=== PATIENT | male | born 1955 | race Caucasian/White ===

== ENCOUNTER 2017-01-24 16:04 | Emergency (ER) | payer MEDICARE, OTHER ==
[2017-01-24 16:39] LABS: MEAN CORPUSCULAR HEMOGLOBIN 30.8 pg (28.0-34.0)
[2017-01-24 16:48] LABS: eGFR (African) > 60; eGFR (Non-African) > 60
[2017-01-24] MEDS ORDERED: ACETAMINOPHEN 650 MG SUPP.RECT RC ONE (17:11)
[2017-01-24] MEDS: ACETAMINOPHEN 650 MG SUPP.RECT RC PRN (17:26)
--- NOTE | 2017-01-24 17:29 | ED Physician Documentation ---
Fall - HISTORIAN Historian: other ([facility] staff) - HPI Chief Complaint: Fall Onset: today, yesterday Where: other ([place]) Context: lost balance Associated Symptoms:: no loss of consciousness (per staff) Injury to Right Extremity: none Injury to Left Extremity: none Further Comments: yes (61 year old male patient with altered mental status after a fall this morning and last night. Staff reported no LOC. Temp on arrival 102.9. Patient unable to contribute to ROS due to dementia.) - ROS CONST: denies: no problems NEURO: other (increased confusion). denies: dizziness MS/SKIN/LYMPH: ankle swelling (feet) EYES/ENT: none CVS/RESP: none GI/: nausea. denies: vomiting - PAST HX Past History: other (dementia, HLD, Parkinson's, COPD) Allergies/Adverse Reactions: Allergies Allergy/AdvReac Type Severity Reaction Status Date / Time No Known Allergies Allergy Verified 01/24/17 17:30 Home Medications: Ambulatory Orders Medication Instructions Recorded Albuterol Sulfate [Albuterol 01/24/17 Sulfate] Aspirin EC [Ecotrin] 01/24/17 Atorvastatin Calcium [Atorvastatin 01/24/17 Calcium] Citalopram Hydrobromide [Celexa] 01/24/17 Divalproex Sodium [Depakote 8HS 01/24/17 Sprinkle] Trazodone HCl [Trazodone HCl] HS 01/24/17 - SOCIAL HX Smoking History: non-smoker Alcohol Use: none - FAMILY HX Family History: denies: none - VITAL SIGNS Vital Signs: Vital Signs Temp Pulse Resp BP Pulse Ox 84 95 01/24/17 16:45 01/24/17 16:45 - REVIEWED ASSESSMENTS Nursing Assessment Reviewed: Yes Vitals Reviewed: Yes Progress - Progress Progress: Unable to pass coude for I/O cath, scant bleeding from penis 1540 Patient attempting to get up multiple times, will not follow nursing redirection and commands. Ativan 1 mg IV given Neut count 91%, no manual diff available at this time, bands unknown. [address] Galeana - likely LLQ pneumonia on xray, will start antibiotic and discharge back to [place]. 1800 Patient extremely agitated, haldol 5mg given 1900 Patient sleeping, antibiotic and NS running. Will discharge back to [place] per Dr Galeana. ED Results Lab/Radiology - Lab Results Lab Results: Lab Results 01/24/17 01/24/17 01/24/17 16:15 16:15 16:15 WBC 7.20 K/ul K/ul (4.00-12.00) RBC 3.82 M/ul L M/ul (3.90-5.20) Hgb 11.7 g/dL L g/dL (12.0-18.0) Hct 34.3 % L % (37.0-53.0) MCV 90.0 fl fl (80.0-100.0) MCH 30.8 pg pg (28.0-34.0) MCHC 34.2 g/dL g/dL (30.0-36.0) RDW 15.3 % H % (11.3-14.3) Plt Count 195 K/mm3 K/mm3 (130-400) Sodium 137 mmol/L mmol/L (136-145) Potassium 4.1 mmol/L mmol/L (3.5-5.0) Chloride 104 mmol/L mmol/L (98-110) Carbon Dioxide 29 mmol/L mmol/L (20-32) BUN 15 mg/dL mg/dL (10-26) Creatinine 0.8 mg/dL mg/dL (0.4-1.5) Est GFR ( Amer) > 60 (60 - ) Est GFR (Non-Af Amer) > 60 (60 - ) Glucose 154 mg/dL H mg/dL (70-99) Calcium 9.1 mg/dL mg/dL (8.5-10.5) Total Bilirubin 1.0 mg/dL mg/dL (0.2-1.2) AST 25 U/L U/L (0-41) ALT 23 U/L U/L (0-45) Alkaline Phosphatase 101 U/L U/L (46-116) Creatine Kinase 162 U/L U/L (0-225) CK-MB (CK-2) Pending Troponin I < 0.03 ng/mL L ng/mL (0.03-0.06) Total Protein 7.0 g/dL g/dL (6.0-8.5) Albumin 4.4 g/dL g/dL (3.0-5.5) - Radiology Radiology Impressions: Examination: Portable chest History: Chest discomfort Findings: Single view of the chest demonstrates a normal cardiac and mediastinal silhouette. Mild linear atelectasis left midlung. No effusion. Osseous structures are appropriate for age. Impression: Mild left lung atelectasis. No effusion Electronically signed on Jan 24, 2017 5:45:07 PM CDT by: Alonso Weiner - Orders Orders: ED Orders Category Date Time Status Continuous EKG monitoring Q30M Care 01/24/17 16:15 Active Continuous Pulse Oximetry Q30M Care 01/24/17 16:[address] IV Lock 1T Care 01/24/17 16:15 Active CHEST 1 VIEW [RAD] Stat Exams 01/24/17 17:21 Ordered BLOOD CULTURE Stat Lab 01/24/17 Ordered CBC/PLATELET/DIFF Stat Lab 01/24/17 16:15 Completed CKMB Stat Lab 01/24/17 16:15 Results CMP Stat Lab 01/24/17 16:15 Completed CREATINE KINASE Stat Lab 01/24/17 16:15 Completed TROPONIN I (cTnI) Stat Lab 01/24/17 16:15 Results UA W/MICRO IF INDICATED Stat Lab 01/24/17 16:15 Ordered 0.9 % Sodium Chloride [Normal Saline] 1,000 ml Med 01/24/17 17:21 Discontinued IV NOW Acetaminophen [Tylenol] Med 01/24/17 17:11 Ordered 650 mg RC NOW PRN EKG WITH COMPARISON Stat Ther 01/24/17 16:15 Ordered Fall Physical Exam - Physical Exam General Appearance: moderate distress (does not communicate verbally) Head: no swelling Neck: non-tender, painless ROM Resp/CVS: chest non-tender, no ecchymosis, breath sounds nml, no resp. distress , heart sounds nml Abdomen: soft, no organomegaly, normal bowel sounds, no abdominal bruit, no distension Neuro: disoriented, other (opens eyes, follows some simple commands, purposeful movement; generalized weakness noted. Gait not assessed. ) Skin: no rash, pallor, warm (very warm to touch), other (dressing on right elbow , dry and intact. ) Back: normal inspection - [place] Coma Score Eyes Open: Spontaneous Speech: Confused Motor: Localizes to Pain Discharge Clincal Impression: LLL pneumonia Qualifiers: Pneumonia type: due to unspecified organism Qualified Code(s): J18.1 - Lobar pneumonia, unspecified organism Fever Qualifiers: Fever type: unspecified Qualified Code(s): R50.9 - Fever, unspecified Dementia Qualifiers: Dementia type: Parkinson's disease Dementia behavioral disturbance: with behavioral disturbance Qualified Code(s): G20 - Parkinson's disease; F02.81 - Dementia in other diseases classified elsewhere with behavioral disturbance Referrals: Murtaza Galeana MD [Primary Care Provider] - 2 Days Home Medications: Ambulatory Orders Albuterol Sulfate [Albuterol Sulfate] 01/24/17 Aspirin EC [Ecotrin] 01/24/17 Atorvastatin Calcium [Atorvastatin Calcium] 01/24/17 Citalopram Hydrobromide [Celexa] 01/24/17 Divalproex Sodium [Depakote Sprinkle] 8HS 01/24/17 Trazodone HCl [Trazodone HCl] HS 01/24/17 Decision to Admit: NO Decision Time: 19:39
[2017-01-24] MEDS: 0.9 % SODIUM CHLORIDE 1,000 ML IV ONE ×2 (17:41→19:30)
[2017-01-24] MEDS: LORazepam 2 MG/ML VIAL IVP ONE ×3 (17:45→18:20)
[2017-01-24] MEDS ORDERED: LORazepam 2 MG/ML VIAL ONE (17:49)
[2017-01-24] MEDS: cefTRIAXone SODIUM 1 GM in 0.9 % SODIUM CHLORIDE 50 ML IV ONE (17:50)
[2017-01-24] MEDS ORDERED: KETOROLAC TROMETHAMINE 30 MG/1ML VIAL ONE (18:09)
[2017-01-24] MEDS: KETOROLAC TROMETHAMINE 30 MG/1ML VIAL IVP ONE (18:25)
--- NOTE | 2017-01-24 18:28 | Diagnostic Imaging Report ---
MYESHA EDGAR (ANAHI) - ER~ [facility] [id number] [address] ~ ~ ~ ~ Report Submission Date: Jan 24, 2017 5:45:07 PM CDT Patient ~ Study Name: AGATHA MCCALLUM ~ Date: Jan 24, 2017 5:27:03 PM CDT ~ Modality Type: CR Gender: M ~ Description: CHEST : 59 ~ Institution: [facility] Physician: MYESHA EDGAR) - ER ~ ~ ~ ~ Examination: Portable chest History: Chest discomfort Findings: Single view of the chest demonstrates a normal cardiac and mediastinal silhouette. Mild linear atelectasis left midlung. No effusion. Osseous structures are appropriate for age. Impression: Mild left lung atelectasis. No effusion ~ Electronically signed on Jan 24, 2017 5:45:07 PM CDT by: Alonso CAZARES
[2017-01-24] MEDS: AZITHROMYCIN 500 MG in 0.9 % SODIUM CHLORIDE 250 ML IV ONE (18:30)
[2017-01-24] MEDS: HALOPERIDOL LACTATE 5 MG/ML VIAL IM ONE (18:35)
[2017-01-24] MEDS ORDERED: BACLOFEN 10 MG TABLET PO ONE (18:50)
[2017-01-24 20:36] VITALS: BP 100/52
== END 2017-01-24 20:30 ==
LOC: ED 16:04
DX: J18.1 Lobar pneumonia, unspecified organism (principal); R50.9 Fever, unspecified; G20 Parkinson's disease
CPT/HCPCS: 51701; 71010; 80053; 82550; 82553; 84484; 85025; 87040; J0456; J0696; J1630; J1885; J2060; J7030; J7050; 96361; 96365; 96374; 96375; 99284; S1016